=== PATIENT | male | born 1960 | race Caucasian/White ===

== ENCOUNTER 2017-08-03 13:30 | Inpatient (IN) | payer MEDICARE, MEDICAID ==
[~2017-08-03] VITALS: Ht 185.4 cm; Wt 149.2 kg
[2017-08-03 14:00] VITALS: BP 170/94
[2017-08-03 15:58] LABS: HEMATOCRIT 38.2 % (42.0-52.0); HEMOGLOBIN 14.2 gm/dL (14.0-18.0); MCH 33.7 pg (26.0-34.0); MCHC 37.1 g/dL (28.0-37.0); MCV 90.7 fL (80.0-100.0); MPV 7.4 fl. (7.2-11.1); RBC 4.21 mil/uL (4.50-6.00); RDW-CV 13.2 % (10.5-14.5); WBC 6.3 thou/uL (4.0-11.0)
[2017-08-03 16:06] LABS: CALCIUM 9.2 mg/dL (8.5-10.1); CREATININE 0.8 mg/dL (0.6-1.3); POTASSIUM 3.1 mmol/L (3.5-5.1)
[2017-08-03 16:07] LABS: APTT 33.8 Seconds (25.0-31.3); INR 1.1; PROTIME 10.9 Seconds (9.20-11.50)
[2017-08-03 16:11] LABS: ALBUMIN 4.2 g/dL (3.4-5.0); TOTAL BILIRUBIN 2.5 mg/dL (<0.1-1.0); TOTAL PROTEIN 8.6 g/dL (6.4-8.2)
[2017-08-03] MEDS ORDERED: WELLBUTRIN SR150 MG PO (16:32)
[2017-08-03] MEDS ORDERED: CENTRUM SILVER1 EAC2 PO (16:33)
[2017-08-03] MEDS ORDERED: CHLORTHALIDONE25 MG PO (16:33)
[2017-08-03] MEDS ORDERED: FISH OIL 1,001000 M2 PO (16:34)
[2017-08-03] MEDS ORDERED: COZAAR 50 MG TA50 M2 PO (16:34)
[2017-08-03] MEDS ORDERED: ASPIR 8181 M1 PO (16:35)
[2017-08-03] MEDS ORDERED: PRAVACHOL20 MG PO (16:36)
[2017-08-03] MEDS ORDERED: XANAX1 MG PO (17:12)
--- NOTE | 2017-08-03 17:14 | NUR ---
VSS, ASSUMED CARE OF PT FROM [address], PT IS A&O4 ON RA UP WITH ONE PT IS DIZZY WHEN UP, DENIES ANY PIAN HOS GOAL IS TO IMPROVE NA LABS, HE IS TRACING SR ON THE MONITOR, FALL PRECAUTIONS IN PLACE AND CALL LIGHT IN REACH, FAMILY AT BEDSIDE, WILL FOLLOW WITH PLAN OF CARE.
[2017-08-03 18:01] VITALS: BP 150/93
[2017-08-03 20:43] LABS: CREATININE 0.8 mg/dL (0.6-1.3)
--- NOTE | 2017-08-03 23:22 | NUR ---
PT ANXIOUS AT CHANGE OF SHIFTREQUESTING SOMETHING TO KNOCK HIM OUT. PT INFORMED THAT STAFF WOULD BRING IN HIS ORDERED XANAX. PTS BED ALARM GOING OFF, MOTHER IN THE ROOM TAKING PT TO THE BATHROOM. MOTHER HAVING A HARD TIME ASSISTING PT BECAUSE PT IS DIZZY AND UNSTEADY STAFF ASSISSTED PT BACK TO BED PLACED 4 SIDERAILS UP AND PUT THE BED ALARM BACK ON . PT AND MOTHER DEMANDED THAT HIS SIDE RAIL BE PUT DOWN, EDUCATED PT AND MOTHER ON THE RISK OF FALLS MOTHER AT BEDSIDE AGREED TO TAKE RESPONSIBILITY FOR THE SIDERAIL BEING DOWN.
[2017-08-04] VITALS: BP 153/86
[2017-08-04 00:04] LABS: CALCIUM 9.1 mg/dL (8.5-10.1); CREATININE 0.8 mg/dL (0.6-1.3)
[2017-08-04 04:00] VITALS: BP 151/75
[2017-08-04 04:31] LABS: CALCIUM 8.7 mg/dL (8.5-10.1); CREATININE 0.7 mg/dL (0.6-1.3); POTASSIUM 3.3 mmol/L (3.5-5.1)
--- NOTE | 2017-08-04 06:29 | NUR ---
ASSUMED CARE OF PT AT 1900 ALERT AND ORIENTED BUT CONFUSED AT TIMES WITH SLOW MENTATION AND ANXIOUS. PT MADE REMARK MULTIPLE TIMES " JUST GIVE ME SOMETHING TO KNOCK ME OUT" I EXPLAINED TO PT THAT I WOULD GIVE HIM SOMETHING TO HELP WITH THE ANXIETY, BROUGHT PT SCHEDULED XANAX EARLIER THAT DUE. PT'S MOTHER THEN TOLD STAFF A LITTLE WHILE LATER " ITS BEEN 45 MINS HE NEEDS A SLEEPER" REFERING TO A SLEEPING PILL. EXPLAINED TO PT AND FAMILY MEMBER THAT THERE WASNT ANYTHING ORDERED AND I WOULD PAGE THE DR. OBTAINED ORDERS FOR BENADRYL AND MELATONIN. BROUGHT PT THE BENADRYL AND EXPLAINED THAT IT CAN HELP WITH SLEEP AND ANXIETY. PT STATED " BENADRLY ISNT GOING TO DO ANYTHING" PT AGREED TO TRY IT. PT THEN GIVEN PRN MELATONIN. PT VOIDING FREQUENTLY LG AMOUNTS OF CLEAR LIGHT YELLOW URINE. PT HAVING A HARD TIME URINATING IN BED AND REQUIRED TWO STAFF TO ASSIST HIM DUE TO DIZZINESS. PT HAVING HARD TIME GEETING OOB AND PTS MOTHER STATED " YOU HAVE TO PULL HIM UP TO STAND" EXPLAINED TO PTS MOTHER THAT ITS NOT SAFE FOR STAFF TO LIFT PT. PT THEN C/O PAIN IN THE LOWER HIPS OBTAINED ORDERS FOR PRN TRAMADOL AND BROUGHT IT IN TO PT. PT STATED "TRAMADOL ISNT GOING TO WORK" PT AGREED TO TRY NO FURTHER C/O PAIN. PT THEN CALLED OUT ABOUT 0530 AND REQUESTED A MIN TO BE PLACED EXPLAINT TO PT THAT HE HAS BEEN VOIDING LARGE AMOUNTS OF URINE WITHOUT DIFICULTY OVERNIGHT PT THEN STATED HE HAD TO VOID ASSISSTED PT TO STAND TO USE URINAL, PT STOOD THERE FOR A COUPLE MINS AND STATED HE COULDNT VOID ON HIS OWN. BS [address] VIA TEXT PAGE. PTS MOTHER CALLED OUT WHILE WE WERE AWAITING RESPONSE. TECH ANSWERED AND EXPLAINED WE WERE WAITING FOR THE DR TO CALL FOR ORDERS. PTS MOTHER BECAME UPSET AND WAS YELLING AND SWEARING AT THE TECH. EXPLAINED VISITOR EXPECTATIONS TO PTS MOTHER, ACKNOWLEDGED THE PT AND MOTHERS FRUSTRATIONS AND ASKED THAT COMMUNICATION BE RESPECTFUL GOING FORWARD. WILL CONTINUE PLAN OF CARE.
[2017-08-04 07:54] LABS: CALCIUM 8.7 mg/dL (8.5-10.1); CREATININE 0.7 mg/dL (0.6-1.3); POTASSIUM 3.4 mmol/L (3.5-5.1)
[2017-08-04 09:21] VITALS: BP 164/86
--- NOTE | 2017-08-04 11:45 | NUR ---
I ASSUMED CARE OF THE PATIENT AT 0700. HE IS ALERT AND ORIENTED X4, BUT CAN BE SLOW TO RESPOND. BED IS IN THE LOW LOCKED POSITION AND CALL LIGHT IS IN REACH. MOTHER AND HAVE BEEN TAKING TURNS AT THE BEDSIDE. PATIENT IS VERY DEMANDING AND IS NAKED. HE REFUSES A GOWN. HE REQUESTED MIN BE REMOVED BECAUSE IT WAS PAINFUL. URINE SPECIMEN WAS SENT TO LAB. I SPOKE WITH THE DAUGHTER CHING ON THE PHONE. SHE STATES THAT THE PATIENT HAS NOT TREATED HIS MS SINCE THE . HE IS ANXIOUS AND IS SCARED OF BEING INSIDE OF AN MRI MACHINE. PATIENT CHEWED HIS MEDICATION THIS AM. HE IS ON A FLUID RESTRICTION. HOURLY ROUNDING WAS COMPLETED AND PATIENT NEEDS WERE MET. REPORT WAS GIVEN TO ANDREA AT 1045. WILL CONTINUE TO MONITOR.
[2017-08-04 12:16] VITALS: BP 146/78
[2017-08-04 12:21] LABS: CALCIUM 9.4 mg/dL (8.5-10.1); CREATININE 0.8 mg/dL (0.6-1.3); POTASSIUM 3.6 mmol/L (3.5-5.1)
--- NOTE | 2017-08-04 14:19 | NUR ---
MET WITH PT TO DISCUSS HOME SITUATION/DC PLANNING. PT LIVES WITH . MOTHER IS SUPPORTIVE ALSO. PT HAS MS, IS FAIRLY INDEPENDENT AND USES NO EQUIPMENT. HE STATES HE FOLLOWS WITH DR NINO IN [place]. DENIES DC NEEDS AT THIS TIME. WILL FOLLOW
[2017-08-04 14:20] LABS: URINE BILIRUBIN NEGATIVE (Negative); URINE BLOOD 3+ (Negative); URINE CLARITY CLOUDY; URINE COLOR RED; URINE GLUCOSE-RANDOM NEGATIVE (Negative); URINE KETONES TRACE (Negative); URINE LEUKOCYTES-REFLEX 1+ (Negative); URINE NITRITE-REFLEX NEGATIVE (Negative); URINE PROTEIN 2+ (Negative)
[2017-08-04 14:26] LABS: BACTERIA-REFLEX 1-9 Few /HPF (None Seen); SQUAMOUS 0-3 Few /LPF (0-3); URINE RBC >20 Many /HPF (0-2); URINE WBC-REFLEX >25 Many /HPF (0-5)
[2017-08-04 14:27] LABS: CASTS None Seen /LPF (None Seen); CRYSTALS None Seen /LPF (None Seen)
[2017-08-04 15:46] VITALS: BP 143/77
[2017-08-04 16:46] LABS: CALCIUM 9.2 mg/dL (8.5-10.1); CREATININE 0.8 mg/dL (0.6-1.3); POTASSIUM 3.5 mmol/L (3.5-5.1)
--- NOTE | 2017-08-04 19:10 | NUR ---
ASSUMED CARE OF PT AT 1100. PT CONTINUES TO BE A&O X4 CALM, COOPERATIVE AND LETHARGIC. PT HAD C/O A HEADACHE AND WAS GIVEN PRN PO TRAMADOL THAT EDDECTIVELY REDUCED HIS PAIN TO A TOLERABLE LEVEL. PT HAS BEEN AMBULATING IN HIS ROOM WITH ONE ASSIST AND HAS BEEN VOIDING VIA THE COMMODE IN THE BATHROOM THE TOILET IS TOO LOW FOR HIM TO BE ABLE TO GET UP FROM. PT C/O NAUSEA AND GAS. MD WAS CONTACTED AND ZOFRAN AND SEMITHICONE WERE ORDERED. PT REPORTED THAT NAUSEA WAS EFFECTIVELY REDUCED TO A TOLERABLE LEVEL. PT HAS BEEN COMPLIANT WITH FLUID RESTRICTIONS. PT HAS HAD A POOR APPETITE AND HAS ATE LESS THAN 25% OF HIS LUNCH AND DINNER. PT CURRENTLY RESTING IN BED WITH DAUGHTER AT BEDSIDE. NURSING WILL CONTINUE TO MONITOR.
[2017-08-04 20:10] VITALS: BP 150/78
[2017-08-05] VITALS: BP 115/66
[2017-08-05 04:00] VITALS: BP 136/78
[2017-08-05 05:28] LABS: HEMATOCRIT 36.1 % (42.0-52.0); HEMOGLOBIN 13.2 gm/dL (14.0-18.0); MCH 33.7 pg (26.0-34.0); MCHC 36.5 g/dL (28.0-37.0); MCV 92.3 fL (80.0-100.0); MPV 7.5 fl. (7.2-11.1); RBC 3.92 mil/uL (4.50-6.00); RDW-CV 12.9 % (10.5-14.5); WBC 6.4 thou/uL (4.0-11.0)
[2017-08-05 06:11] LABS: ALBUMIN 3.6 g/dL (3.4-5.0); CALCIUM 8.8 mg/dL (8.5-10.1); CREATININE 0.8 mg/dL (0.6-1.3); MAGNESIUM 1.7 mg/dL (1.8-2.4); PHOSPHORUS* 2.6 mg/dL (2.5-4.9); POTASSIUM 3.4 mmol/L (3.5-5.1)
--- NOTE | 2017-08-05 06:16 | NUR ---
A&O X4 CALM COOPERITVE. REFUSED BENADRYL. RA. -SB ON THE MONITOR. FLUIDS. STANDBY ASSIST. VITALS WNL. DENIES PAIN. HOURLY ROUNDING FOR SAFETY.
[2017-08-05 08:00] VITALS: BP 150/92
[2017-08-05] MEDS ORDERED: PHENAZOPYRIDIN100 M1 PO (10:49)
--- NOTE | 2017-08-05 11:07 | NUR ---
PT'S MEDICAL CHART REVIEWED. STATUS DISCUSSED W/ NSG. PT'S FAMILY PRESENT, THEY INDICATE PT WILL HAVE STRONG SUPPORT AT HOME FROM SEVERAL FAMILY MEMBERS. PT DEMO SBA TRANSFERS AND GAIT (USES IV POLE ASSIST). FAMILY INDICATES PT'S CURRENT LEVEL OF FUNCTIONING IS BASELINE FOR HIM. FAMILY INDICATES PT WILL HAVE ACCESS TO A CANE UPON RETURN TO HOME. FAMILY AND PT INDICATE NO CONCERNS REGARDING DISCHARGE TO HOME AND/OR DME NEEDS. FAMILY AND PT DO NOT FEEL HH SERVICES ARE INDICATED AT THIS TIME. NO FURTHER ACUTE PT SERVICES ARE INDICATED.
[2017-08-05 11:30] VITALS: BP 150/92
== END 2017-08-05 12:28 | disposition home or self-care (01) | DRG 641 ==
LOC: M.2W 13:30
PROVIDERS: ADMIT Internal Medicine
DX: E87.1 Hypo-osmolality and hyponatremia (principal); I10 Essential (primary) hypertension; F41.9 Anxiety disorder, unspecified; F10.10 Alcohol abuse, uncomplicated; R33.9 Retention of urine, unspecified; Z79.899 Other long term (current) drug therapy; Z87.891 Personal history of nicotine dependence; Z79.82 Long term (current) use of aspirin

== ENCOUNTER 2018-04-06 15:13 | Inpatient (IN) | payer MEDICARE, OTHER, MEDICAID ==
[~2018-04-06] VITALS: Ht 188 cm; Wt 129.3 kg
[~2018-04-06 15:13] MED LIST: ASPIR 8181 M1 PO; CENTRUM SILVER1 EAC2 PO; CHLORTHALIDONE25 MG PO; COZAAR 50 MG TA50 M2 PO; FISH OIL 1,001000 M2 PO; PHENAZOPYRIDIN100 M1 PO; PRAVACHOL20 MG PO; WELLBUTRIN SR150 MG PO; XANAX1 MG PO
[2018-04-06 15:21] VITALS: BP 156/84
[2018-04-06] MEDS ORDERED: DILTIAZEM 24HR360 M1 PO (15:26)
[2018-04-06] MEDS ORDERED: XANAX1 MG PO (15:27)
[2018-04-06] MEDS ORDERED: CLONIDINE0.1 PO (15:27)
[2018-04-06] MEDS ORDERED: PROTONIX40 M1 PO (15:28)
[2018-04-06 16:10] LABS: ABSOLUTE BASOPHILS 0.1 thou/uL (0.0-0.2); ABSOLUTE EOSINOPHILS 0.1 thou/uL (0.0-0.7); ABSOLUTE LYMPHOCYTES 1.7 thou/uL (0.8-5.3); ABSOLUTE MONOCYTES 0.4 thou/uL (0.0-1.2); ABSOLUTE NEUTROPHILS 4.7 thou/uL (1.6-8.1); BASOPHILS 0.9 %; HEMATOCRIT 42.6 % (42.0-52.0); HEMOGLOBIN 14.7 gm/dL (14.0-18.0); LYMPHOCYTES 24.3 %; MCH 31.3 pg (26.0-34.0); MCHC 34.5 g/dL (28.0-37.0); MCV 90.8 fL (80.0-100.0); MONOCYTES 5.5 %; MPV 8.4 fl. (7.2-11.1); NUCLEATED RBCS 0 /100WBC; PLATELET COUNT* 148 thou/uL (150-400); POLYS 67.3 %; RBC 4.69 mil/uL (4.50-6.00); RDW-CV 13.5 % (10.5-14.5)
[2018-04-06 16:28] LABS: CALCIUM 10.2 mg/dL (8.5-10.1); POTASSIUM 3.8 mmol/L (3.5-5.1)
[2018-04-06 16:39] LABS: TOTAL BILIRUBIN 1.2 mg/dL (<0.1-1.0); TOTAL PROTEIN 9.4 g/dL (6.4-8.2)
[2018-04-06 16:53] LABS: URINE BILIRUBIN NEGATIVE (Negative); URINE BLOOD NEGATIVE (Negative); URINE CLARITY CLEAR; URINE COLOR YELLOW; URINE GLUCOSE-RANDOM NEGATIVE (Negative); URINE KETONES NEGATIVE (Negative); URINE LEUKOCYTES-REFLEX NEGATIVE (Negative); URINE NITRITE-REFLEX NEGATIVE (Negative); URINE PROTEIN NEGATIVE (Negative); URINE SPECIFIC GRAVITY 1.015 (1.005-1.030)
[2018-04-06 18:13] VITALS: BP 107/78
--- NOTE | 2018-04-06 18:59 | NUR ---
PT ADMITTED TO UNIT WITH WEAKNESS IN LEGS AND VISUAL DISTURBANCES. PT IS ALERT AND ORIENTED. PT WILL HAVE AN MRI TOMORROW. PT STATES THEY ARE NERVOUS, NEED TO BE KNOCKED OUT AND CANNOT TAKE ATIVAN DUE TO CREATING MORE ANXIETY. PT IS ON RA, SKIN DRY AND INTACT. PT DENIES HAVING PAIN. PT HAS MS AND USES A WALKER TO HELP GET AROUND. BED ALARM ON. WILL CONTINUE TO MONITOR.
[2018-04-06 19:01] VITALS: BP 151/79
--- NOTE | 2018-04-06 19:08 | NUR ---
PT STATES THEY WILL NOT BE ABLE TO HANDLE MRI AND IS LEAVING [facility]. PT STATES THEY WILL BE IN CONTACT WITH DR. EAST. PT SIGNED AMA SHEET AND IV REMOVED AT THIS TIME.
== END 2018-04-06 19:27 | disposition left against medical advice (07) | DRG 59 ==
LOC: M.ERS 15:13 → M.TBA-ER 17:51 → M.ORTHSURG 18:10
PROVIDERS: Nurse Practitioner; ADMIT Internal Medicine
DX: G35 Multiple sclerosis (principal); H46.9 Unspecified optic neuritis; I10 Essential (primary) hypertension; E78.5 Hyperlipidemia, unspecified; F41.1 Generalized anxiety disorder; F41.0 Panic disorder [episodic paroxysmal anxiety]; F40.240 Claustrophobia; Z53.21 Procedure and treatment not carried out due to patient leaving prior to being seen by health care provider; E83.52 Hypercalcemia; Z87.891 Personal history of nicotine dependence; Z79.899 Other long term (current) drug therapy